=== PATIENT | male | born 1970 | race American Indian/Alaskan Native ===

== ENCOUNTER 2022-03-26 07:49 | Emergency (ER) | payer MEDICAID ==
--- NOTE | 2022-03-26 08:03 | Emergency Department Report ---
ED General Adult HPI - General Stated complaint: CHEST PAIN PUI?: No Time Seen by Provider: 03/26/22 07:56 Source: patient Mode of arrival: Ambulatory Limitations: No Limitations - History of Present Illness Initial comments: Patient was in bed this a.m., had a bad headache, he was then smoking a cigar; developed worsening cp. And sob. sharp pain; not related to movement: Denies trauma no fever/chills/cough/no n/v/d meds thyroid meds covid immunized - Related Data Allergies Allergy/AdvReac Type Severity Reaction Status Date / Time No Known Allergies Allergy Verified 03/26/22 13:47 ED Review of Systems ROS: Stated complaint: CHEST PAIN Other details as noted in HPI Comment: All other systems reviewed and negative ED Past Medical Hx - Past Medical History Previous Medical History?: Yes Additional medical history: hyperthyroid- with removal - Surgical History Past Surgical History?: Yes - Family History Family history: no significant - Social History Smoking Status: Current Every Day Smoker Substance Use Type: Alcohol ED Physical Exam - General Limitations: No Limitations General appearance: alert - Head Head exam: Present: normocephalic - Eye Eye exam: Present: normal appearance - ENT ENT exam: Present: mucous membranes moist ED Course Vital Signs 03/26/22 07:57 Temperature 98.5 F Pulse Rate 100 H Respiratory 18 Rate Blood Pressure 114/83 O2 Sat by Pulse 97 Oximetry - Reevaluation(s) Reevaluation #1: 03/26/22 10:11 H&P in triage. Patient being transferred to main ED. ED Medical Decision Making - Lab Data Result diagrams: 03/26/22 08:30 03/26/22 08:30 Critical care attestation.: If time is entered above; I have spent that time in minutes in the direct care of this critically ill patient, excluding procedure time. ED Disposition Clinical Impression: Chest pain Disposition: 30 STILL A PATIENT Is pt being admited?: No Does the pt Need Aspirin: No Condition: Stable Instructions: Nonspecific Chest Pain, Adult Referrals: MARLA GUTIERREZ MD [Primary Care Provider] - 3-5 Days
--- NOTE | 2022-03-26 08:27 | XRay Report ---
CHEST 2 VIEWS INDICATION / CLINICAL INFORMATION: cp. COMPARISON: None available. FINDINGS: SUPPORT DEVICES: None. HEART / MEDIASTINUM: No significant abnormality. LUNGS / PLEURA: No significant pulmonary or pleural abnormality. No pneumothorax. ADDITIONAL FINDINGS: Small nodular densities overlying the lower lungs bilaterally suggest nipple sha dows. IMPRESSION: 1. No acute findings. Signer Name: Randall Macias MD Signed: 03/26/2022 8:23 AM Workstation Name: [id number]
[2022-03-26 08:56] LABS: Basophils # (Auto) 0.1 K/mm3 (0.0-0.1); Eosinophils # (Auto) 0.1 K/mm3 (0.0-0.4); Eosinophils % (Auto) 1.4 % (0.0-4.3); Hematocrit 41.8 % (35.5-45.6); Hemoglobin 14.3 gm/dl (11.8-15.2); Lymphocytes # (Auto) 1.7 K/mm3 (1.2-5.4); Lymphocytes % (Auto) 23.8 % (13.4-35.0); Mean Corpuscular HGB Conc 34 % (32-34); Mean Corpuscular Volume 100 fl (84-94); Monocytes # (Auto) 0.6 K/mm3 (0.0-0.8); Monocytes % (Auto) 8.7 % (0.0-7.3); Platelet Count 215 K/mm3 (140-440); Red Blood Count 4.16 M/mm3 (3.65-5.03); Red Cell Distribution Width 12.4 % (13.2-15.2)
[2022-03-26 09:14] LABS: Alanine Aminotransferase 19 units/L (7-56); Albumin 4.2 g/dL (3.9-5); BUN/Creatinine Ratio 11; Blood Urea Nitrogen 11 mg/dL (9-20); Calcium 8.8 mg/dL (8.4-10.2); Hemolysis Index 10
--- NOTE | 2022-03-26 10:57 | Electrocardiograph Report ---
[facility] Test Date: 2022-03-26 Test Time: 07:53:32 Pat Name: GONZALO BRANCH Department: Room: Gender: M [employer]et Machine Operator: KATHARINA : 1970 Requested By: KYLER DEAL Order Number: [id number] Reading MD: Joon Cheney Measurements Intervals [place] Rate: 101 P: 74 PA: 147 QRS: 70 QRSD: 75 T: 63 QT: 318 QTc: 412 Interpretive Statements Sinus tachycardia ST elev, probable normal early repol pattern No previous ECG available for comparison Electronically Signed On 03-26-2022 10:57:01 EDT by Joon Cheney
--- NOTE | 2022-03-26 12:47 | Emergency Department Report ---
ED Chest Pain HPI - General Chief Complaint: Chest Pain Stated Complaint: CHEST PAIN Time Seen by Provider: 03/26/22 07:56 Source: patient Mode of arrival: Ambulatory Limitations: No Limitations - History of Present Illness Initial Comments: 51-year-old male with history of hyperthyroidism (status post thyroidectomy) presents to the emergency department with sudden onset of diffuse chest pain 2 hours prior to arrival. Patient states that the pain woke him up out of his sleep and worsened with respiration, chest wall palpation and when he smoked a c igar. Patient denies cough, but did say it was difficult for him to catch his breath. Patient denies fever, chills, sore throat, nausea, vomiting, or diarrhea. Denies lower extremity pain or swelling. Patient denies previous similar pain. Patient denies alleviating factors, but does have worsening of pain with respiration. Heart Score - HEART Score History: Slightly suspicious EKG: Non-specific Age: 45-65 Risk factors: 1-2 risk factors Troponin: < normal limit HEART Score: 3 - EKG Read Time Time EKG Completed: 07:53 EKG Read Time: 12:51 ED Review of Systems ROS: Stated complaint: CHEST PAIN Other details as noted in HPI Constitutional: denies: chills, fever Eyes: denies: eye pain, eye discharge, vision change ENT: denies: ear pain, throat pain Respiratory: other (Difficulty taking a deep breath). denies: cough, shortness of breath, wheezing Cardiovascular: chest pain. denies: palpitations, dyspnea on exertion, orthopnea, paroxysmal nocturnal dyspnea Endocrine: no symptoms reported Gastrointestinal: denies: abdominal pain, nausea, diarrhea Genitourinary: denies: urgency, dysuria Musculoskeletal: denies: back pain, joint swelling, arthralgia Skin: denies: rash, lesions Neurological: denies: headache, weakness, paresthesias Psychiatric: denies: anxiety, depression Hematological/Lymphatic: denies: easy bleeding, easy bruising ED Past Medical Hx - Past Medical History Previous Medical History?: Yes Additional medical history: hyperthyroid- with removal - Surgical History Past Surgical History?: Yes - Social History Smoking Status: Current Every Day Smoker Substance Use Type: Alcohol ED Physical Exam - General Limitations: No Limitations General appearance: alert - Head Head exam: Present: atraumatic, normocephalic - Eye Eye exam: Present: normal appearance - ENT ENT exam: Present: mucous membranes moist - Neck Neck exam: Present: normal inspection - Respiratory Respiratory exam: Present: normal lung sounds bilaterally, wheezes, chest wall tenderness, prolonged expiratory. Absent: respiratory distress, rhonchi, stridor - Cardiovascular Cardiovascular Exam: Present: regular rate, normal rhythm. Absent: systolic murmur, diastolic murmur, rubs, gallop - GI/Abdominal GI/Abdominal exam: Present: soft, normal bowel sounds. Absent: tenderness - Rectal Rectal exam: Present: deferred - Extremities Exam Extremities exam: Present: normal inspection - Back Exam Back exam: Present: normal inspection - Neurological Exam Neurological exam: Present: alert, oriented X3 - Psychiatric Psychiatric exam: Present: normal affect, normal mood - Skin Skin exam: Present: warm, dry, intact, normal color. Absent: rash ED Course Vital Signs 03/26/22 07:57 Temperature 98.5 F Pulse Rate 100 H Respiratory 18 Rate Blood Pressure 114/83 O2 Sat by Pulse 97 Oximetry ED Medical Decision Making - Lab Data Result diagrams: 03/26/22 08:30 03/26/22 08:30 - EKG Data Rate: tachycardia - Differential Diagnosis Bronchospasm, ACS, [place], pulmonary embolism Critical care attestation.: If time is entered above; I have spent that time in minutes in the direct care of this critically ill patient, excluding procedure time. ED Disposition Disposition: 30 STILL A PATIENT Condition: Stable Referrals: MARLA GUTIERREZ MD [Primary Care Provider] - 3-5 Days
[2022-03-26] MEDS ORDERED: ALBUTEROL 2.5 MG/3 ML NEBU IH ONE ×2 (13:02→16:30)
[2022-03-26] MEDS ORDERED: predniSONE 20 MG TAB PO ONE ×2 (13:03→17:00)
[2022-03-26] MEDS ORDERED: IPRATROPIUM 0.02% NEBU 2.5 ML IH ONE ×2 (13:03→16:30)
[2022-03-26] MEDS ORDERED: KETOROLAC 30 MG/1 ML INJ IV ONE ×2 (13:03→17:00)
[2022-03-26 15:07] LABS: INR 0.88 (0.87-1.13); Partial Thromboplastin Time 30.3 Sec. (24.2-36.6)
[2022-03-26 19:07] VITALS: BP 120/78
== END 2022-03-26 19:24 | disposition home or self-care (01) ==
LOC: ED 07:49
DX: R07.9 Chest pain, unspecified (principal); E05.90 Thyrotoxicosis, unspecified without thyrotoxic crisis or storm; Z98.890 Other specified postprocedural states; F17.290 Nicotine dependence, other tobacco product, uncomplicated
CPT/HCPCS: 36415; 71046; 80053; 83690; 84484; 85025; 85379; 85610; 85730; 93005; 94640; 96374; 96376; 99284; J1885; 94644